=== PATIENT | male | born 1980 | race Caucasian/White ===

== ENCOUNTER 2019-08-24 08:14 | Emergency (ER) | payer SELFPAY ==
[~2019-08-24] VITALS: Ht 175.3 cm; Wt 97.0 kg
[2019-08-24 08:18] VITALS: BP 161/78
== END 2019-08-24 09:32 | disposition left against medical advice (07) ==
LOC: ER 09:29
DX: R11.10 Vomiting, unspecified (principal); R19.7 Diarrhea, unspecified; Z53.21 Procedure and treatment not carried out due to patient leaving prior to being seen by health care provider